=== PATIENT | male | born 1955 | race Caucasian/White ===

== ENCOUNTER 2022-12-17 09:32 | Outpatient (CLI) | payer MEDICARE | END 2022-12-17 09:33 | disposition home or self-care (01) | LOC: RAD 09:32 | PROVIDERS: ATTEND Internal Medicine Critical Care Medicine | DX: R06.00 Dyspnea, unspecified (principal) | CPT/HCPCS: 71046 ==

== ENCOUNTER 2023-04-26 13:48 | Inpatient (IN) | payer MEDICARE, OTHER, SELFPAY ==
[~2023-04-26 13:48] MED LIST: Iopamidol-370 76% 500 ML MDV (1 ML CHARGE) ONE
[2023-04-26 14:14] LABS: Bacteria/HPF None Seen HPF (None Seen); Bilirubin 1+ (Negative); Blood, Urine Negative (Negative); CAUTI Indications for Culture Pelvic or flank pain; Clarity Clear (Clear); Glucose, Urine (Dipstick) Normal (Negative); Ketone, Urine Negative (Negative); Leukocyte Negative Leu/uL (Negative); Nitrite Negative (Negative); Protein, Urine (Dipstick) Negative (Neg-Trace); RBC/HPF 0-3 HPF (0-3); Squamous Epithelial None Seen HPF (0-3); Urobilinogen Normal mg/dL (Less than 2); WBC/HPF 0-3 HPF (0-3)
[2023-04-26 14:15] LABS: Urine Culture Reflex No No
[2023-04-26 15:03] LABS: #Basophils 0.1 thou/uL (0.0-0.2); #Eosinphils 0.1 thou/uL (0.0-0.7); #Monocytes 0.8 thou/uL (0.11-0.59); #Neutrophils 3.5 thou/uL (1.40-6.50); %Basophils 0.8 % (0.0-1.0); %Eosinophils 1.5 % (0.0-10.0); %Lymphocytes 39.1 % (21.0-51.0); %Monocytes 10.7 % (0.0-10.0); %Neutrophils 47.6 % (42.0-75.0); Hemoglobin 12.2 g/dL (14.0-18.0); Mean Corpuscular HGB CONC 36.1 g/dL (32.0-36.0); Mean Corpuscular Hemoglobin 33.2 pg (27.0-31.0); Mean Corpuscular Volume 92.1 fl (78.0-98.0); Mean Platelet Volume 11.1 fL (7.4-10.4); Platelet Count 270 10x3/uL (130-400); RBC Distribution Width 15.4 % (11.5-14.5); Red Blood Cell (RBC) Count 3.67 mill/uL (4.70-6.10); White Blood Cell (WBC) Count 7.3 10x3/uL (4.8-10.8)
[2023-04-26 15:33] LABS: ALT (SGPT) 56 U/L (8-55); AST (SGOT) 45 U/L (5-34); Albumin 3.9 g/dL (3.4-4.8); Alkaline Phosphatase 246 U/L (40-110); Anion Gap 15 mmol/L (10-20); BUN (Urea Nitrogen) 10 mg/dL (8.4-25.7); Bilirubin, Total 9.5 mg/dL (0.2-1.2); Calc. Creatinine Clearance 0 mL/min (70-130); Calcium 9.5 mg/dL (7.8-10.44); Carbon Dioxide 21 mmol/L (23-31); Chloride 95 mmol/L (98-107); Estimated GFR 95; Globulin 3.3 g/dL (2.4-3.5); Glucose 108 mg/dL (80-115); Protein, Total 7.2 g/dL (5.8-8.1); Sodium 127 mmol/L (136-145)
[2023-04-26 15:47] LABS: Lipase 1845 U/L (8-78)
[2023-04-26] MEDS ORDERED: diphenhydrAMINE 50 MG/ML VIAL ONE (17:08)
[2023-04-26] MEDS ORDERED: Calcium Carbonate 500 MG ChewTAB PO PRN (19:39)
[2023-04-26] MEDS ORDERED: Ondansetron ODT 4 MG TAB PO PRN (19:39)
[2023-04-26] MEDS ORDERED: Acetaminophen 325 MG TAB PO PRN (19:39)
[2023-04-26] MEDS ORDERED: Senokot S 8.6-50 MG TAB PO PRN (19:39)
[2023-04-26 19:45] VITALS: BMI 29.0
[2023-04-26] MEDS: D5 1/2 NS w/20 mEq KCL 1,000 ML IV SCH (20:14)
[2023-04-26] MEDS: Famotidine 20 MG TAB PO SCH (20:15)
[2023-04-27] MEDS: D5 1/2 NS w/20 mEq KCL 1,000 ML IV SCH (03:58)
[2023-04-27 06:43] LABS: #Basophils 0.1 thou/uL (0.0-0.2); #Eosinphils 0.1 thou/uL (0.0-0.7); #Monocytes 0.7 thou/uL (0.11-0.59); #Neutrophils 2.5 thou/uL (1.40-6.50); %Basophils 0.9 % (0.0-1.0); %Eosinophils 2.5 % (0.0-10.0); %Monocytes 12.7 % (0.0-10.0); %Neutrophils 45.7 % (42.0-75.0); Hemoglobin 11.8 g/dL (14.0-18.0); Mean Corpuscular HGB CONC 35.8 g/dL (32.0-36.0); Mean Corpuscular Hemoglobin 32.4 pg (27.0-31.0); Mean Corpuscular Volume 90.7 fl (78.0-98.0); Platelet Count 270 10x3/uL (130-400); RBC Distribution Width 15.7 % (11.5-14.5); Red Blood Cell (RBC) Count 3.64 mill/uL (4.70-6.10); White Blood Cell (WBC) Count 5.5 10x3/uL (4.8-10.8)
[2023-04-27 07:10] LABS: ALT (SGPT) 54 U/L (8-55); AST (SGOT) 44 U/L (5-34); Albumin 3.5 g/dL (3.4-4.8); Alkaline Phosphatase 221 U/L (40-110); Anion Gap 14 mmol/L (10-20); BUN (Urea Nitrogen) 9 mg/dL (8.4-25.7); Bilirubin, Total 8.2 mg/dL (0.2-1.2); Calc. Creatinine Clearance 93 mL/min (70-130); Carbon Dioxide 22 mmol/L (23-31); Chloride 104 mmol/L (98-107); Estimated GFR 94; Glucose 124 mg/dL (80-115); Potassium 4.2 mmol/L (3.5-5.1); Protein, Total 6.5 g/dL (5.8-8.1); Sodium 136 mmol/L (136-145)
[2023-04-27] MEDS: Famotidine 20 MG TAB PO SCH ×2 (09:03→20:03)
[2023-04-28 07:53] VITALS: BP 162/75; TEMP 98.2
[2023-04-28] MEDS: Famotidine 20 MG TAB PO SCH (09:56)
== END 2023-04-28 11:12 | disposition short-term general hospital (02) | DRG 439 ==
LOC: ERS 13:48 → T4-A 18:13 → OBSVTOIN 04-27 16:59
PROVIDERS: ADMIT Student in an Organized Health Care Education/Training Program; ATTEND Internal Medicine Geriatric Medicine
DX: K86.89 Other specified diseases of pancreas (principal); E87.1 Hypo-osmolality and hyponatremia; K85.90 Acute pancreatitis without necrosis or infection, unspecified; E80.6 Other disorders of bilirubin metabolism; K75.9 Inflammatory liver disease, unspecified; I10 Essential (primary) hypertension; F17.210 Nicotine dependence, cigarettes, uncomplicated; Z90.49 Acquired absence of other specified parts of digestive tract; Z88.0 Allergy status to penicillin; Z88.1 Allergy status to other antibiotic agents
CPT/HCPCS: 36415; 74177; 76705; 80053; 81001; 83690; 85025; 93005; 96361; 96374; G0378; J1200; J3480; Q9967

== ENCOUNTER 2023-05-20 21:40 | Emergency (ER) | payer MEDICARE ==
[2023-05-20] MEDS ORDERED: fentaNYL 50 mcg/mL 1 mL Vial ONE (22:38)
[2023-05-20] MEDS ORDERED: Ondansetron PF 4 MG/2 ML Vial ONE (22:38)
[2023-05-20 22:47] LABS: #Basophils 0.1 thou/uL (0.0-0.2); #Monocytes 1.4 thou/uL (0.11-0.59); #Neutrophils 12.5 thou/uL (1.40-6.50); %Basophils 0.5 % (0.0-1.0); %Eosinophils 0.2 % (0.0-10.0); %Neutrophils 73.2 % (42.0-75.0); Hemoglobin 11.6 g/dL (14.0-18.0); Mean Corpuscular Volume 94.2 fl (78.0-98.0); Mean Platelet Volume 9.3 fL (7.4-10.4); Platelet Count 456 10x3/uL (130-400); RBC Distribution Width 13.3 % (11.5-14.5); Red Blood Cell (RBC) Count 3.62 mill/uL (4.70-6.10); White Blood Cell (WBC) Count 17.1 10x3/uL (4.8-10.8)
[2023-05-20 23:15] LABS: ALT (SGPT) 99 U/L (8-55); AST (SGOT) 67 U/L (5-34); Albumin 3.7 g/dL (3.4-4.8); Alkaline Phosphatase 152 U/L (40-110); Anion Gap 16 mmol/L (10-20); BUN (Urea Nitrogen) 11 mg/dL (8.4-25.7); Bilirubin, Total 2.9 mg/dL (0.2-1.2); Calc. Creatinine Clearance 0 mL/min (70-130); Calcium 9.3 mg/dL (7.8-10.44); Carbon Dioxide 24 mmol/L (23-31); Chloride 96 mmol/L (98-107); Estimated GFR 96; Glucose 155 mg/dL (80-115); Lipase 176 U/L (8-78); Potassium 4.9 mmol/L (3.5-5.1); Protein, Total 6.7 g/dL (5.8-8.1); Sodium 131 mmol/L (136-145)
[2023-05-21] MEDS ORDERED: fentaNYL 50 mcg/mL 1 mL Vial ONE (01:09)
[2023-05-21] MEDS ORDERED: Cefepime 2 GM VIAL ONE (02:14)
== END 2023-05-21 03:36 | disposition short-term general hospital (02) ==
LOC: ERS 21:40
DX: K81.0 Acute cholecystitis (principal); C25.9 Malignant neoplasm of pancreas, unspecified; Z96.89 Presence of other specified functional implants; E78.5 Hyperlipidemia, unspecified; I10 Essential (primary) hypertension; Z79.899 Other long term (current) drug therapy
CPT/HCPCS: 76705; 80053; 83690; 84484; 85025; 93005; 96361; 96365; 96375; 96376; 99285; J3010 ×2; J0692; J2405

== ENCOUNTER 2023-06-18 05:31 | Day surgery (SDC) | payer MEDICARE ==
[2023-06-17 12:22] VITALS: BMI 23.9
[2023-06-18] MEDS ORDERED: Lidocaine 1% MPF 2 ML VIAL ONE (06:02)
[2023-06-18] MEDS ORDERED: Ketorolac Tromethamine 30 MG/ML VIAL ONE (06:02)
[2023-06-18] MEDS ORDERED: Acetaminophen 500 MG TAB ONE (06:02)
[2023-06-18] MEDS ORDERED: Sodium Chloride 0.9% 100 ML ONE (06:57)
[2023-06-18] MEDS ORDERED: CEFAZOLIN 2 GM VIAL ONE (06:57)
[2023-06-18] MEDS ORDERED: Lidocaine 1% PF 5 ML VIAL ONE (07:12)
[2023-06-18] MEDS ORDERED: PHENYLEPHRINE-NS 100 MCG/ML 10 ML SYRINGE ONE (07:12)
[2023-06-18] MEDS ORDERED: PROPOFOL 200 MG/20 ML VIAL ONE (07:12)
[2023-06-18] MEDS ORDERED: Ondansetron PF 4 MG/2 ML Vial ONE (07:12)
[2023-06-18] MEDS ORDERED: ePHEDrine Sulfate 50 MG/10 ML VIAL ONE (07:12)
[2023-06-18] MEDS ORDERED: Bupivacaine 0.25% HCL 30 ML VIAL ONE (07:25)
[2023-06-18] MEDS ORDERED: Lidocaine 2% PF 5 ML VIAL ONE (07:25)
== END 2023-06-18 09:20 | disposition home or self-care (01) ==
LOC: SDC 05:31
PROVIDERS: ATTEND Specialist
PROC: 0JHF3WZ Insertion of Totally Implantable Vascular Access Device into Left Upper Arm Subcutaneous Tissue and Fascia, Percutaneous Approach (ICD-10-PCS; principal; 2023-06-18)
DX: C25.9 Malignant neoplasm of pancreas, unspecified (principal); I10 Essential (primary) hypertension; E78.00 Pure hypercholesterolemia, unspecified; Z88.0 Allergy status to penicillin; Z88.1 Allergy status to other antibiotic agents; Z79.899 Other long term (current) drug therapy; Z90.49 Acquired absence of other specified parts of digestive tract; Z98.890 Other specified postprocedural states
CPT/HCPCS: 36561; 71045; C1788; J1642; J1885; J2001; J2405; J2704; J3490; S0020

== ENCOUNTER 2023-09-19 18:37 | Observation (INO) | payer MEDICARE ==
[2023-09-19] MEDS ORDERED: Clindamycin/D5W 600 MG in Premix 1 BAG IVPB SCH (21:45)
[2023-09-19 21:49] LABS: Hematocrit 31.6 % (42.0-52.0); Hemoglobin 10.5 g/dL (14.0-18.0); Manual Diff?? YES; Mean Corpuscular HGB CONC 33.2 g/dL (32.0-36.0); Mean Corpuscular Hemoglobin 34.5 pg (27.0-31.0); Mean Corpuscular Volume 103.9 fl (78.0-98.0); Mean Platelet Volume 10.1 fL (7.4-10.4); Platelet Count 166 10x3/uL (130-400); RBC Distribution Width 16.1 % (11.5-14.5); Red Blood Cell (RBC) Count 3.04 mill/uL (4.70-6.10); White Blood Cell (WBC) Count 60.6 10x3/uL (4.8-10.8)
[2023-09-19 21:54] LABS: Delete Auto Diff?? YES
[2023-09-19 22:02] LABS: INR-International Normal Ratio 1.1; PTT 25.4 sec (22.9-36.1); Prothrombin Time 14.2 sec (12.0-14.7)
[2023-09-19 22:13] LABS: ALT (SGPT) 43 U/L (8-55); AST (SGOT) 26 U/L (5-34); Albumin 4.1 g/dL (3.4-4.8); Alkaline Phosphatase 186 U/L (40-110); Anion Gap 14 mmol/L (10-20); BUN (Urea Nitrogen) 14 mg/dL (8.4-25.7); Bilirubin, Total 0.3 mg/dL (0.2-1.2); Calc. Creatinine Clearance 0 mL/min (70-130); Calcium 9.1 mg/dL (7.8-10.44); Carbon Dioxide 20 mmol/L (23-31); Chloride 108 mmol/L (98-107); Estimated GFR 93; Globulin 2.9 g/dL (2.4-3.5); Glucose 101 mg/dL (80-115); Potassium 4.4 mmol/L (3.5-5.1); Sodium 138 mmol/L (136-145)
[2023-09-19] MEDS ORDERED: LevoFLOXacin 500 mg/D5W 100 ML BAG ONE (22:28)
[2023-09-19] MEDS ORDERED: Boostrix 0.5 ML (Tdap) VIAL (>/=7 yrs of age) ONE (22:28)
[2023-09-19 22:36] LABS: Band 12 % (5-11); CellaVision Operator ID lab.abc; Lymphocytes 3 % (21-51); Macrocytosis SLIGHT = 6-15 cells HPF (0-5); Monocytes 1 % (0-10); Neutrophil 84 % (42-75); Platelet Adequacy Comment Platelets Normal; Total Cell Count 100
[2023-09-19] MEDS ORDERED: Dextrose 50% Abboject 50 ML SYRINGE SLOW IVP PRN (23:17)
[2023-09-19] MEDS ORDERED: Dextrose 5% in Water 1,000 ML IV PRN (23:17)
[2023-09-19] MEDS ORDERED: Glucagon 1 MG/ML KIT IM PRN (23:17)
[2023-09-19] MEDS ORDERED: TETANUS, DIPHTHERIA TOX,ADULT (TDVAX) 0.5 ML VIAL IM ONE (23:17)
[2023-09-19] MEDS ORDERED: Ondansetron ODT 4 MG TAB PO PRN (23:18)
[2023-09-19] MEDS ORDERED: Ondansetron PF 4 MG/2 ML Vial IVP PRN (23:18)
[2023-09-19] MEDS ORDERED: traMADol HCl 50 MG TAB PO PRN (23:20)
[2023-09-19] MEDS ORDERED: Morphine 2 MG/ML VIAL SLOW IVP PRN (23:21)
[2023-09-19] MEDS ORDERED: Sodium Chloride 0.9% 1,000 ML IV SCH (23:30)
[2023-09-19 23:58] LABS: Troponin I Less than 0.010 ng/mL (< 0.028)
[2023-09-20 00:28] VITALS: BMI 26.2
[2023-09-20] MEDS: traMADol HCl 50 MG TAB PO SCH ×3 (01:26→12:52)
[2023-09-20] MEDS: Ibuprofen 200 MG TAB PO SCH ×2 (02:01→08:58)
[2023-09-20] MEDS: Acetaminophen 325 MG TAB PO SCH ×3 (02:01→12:52)
[2023-09-20 05:57] LABS: Hematocrit 29.9 % (42.0-52.0); Hemoglobin 9.7 g/dL (14.0-18.0); Manual Diff?? YES; Mean Corpuscular HGB CONC 32.4 g/dL (32.0-36.0); Mean Corpuscular Hemoglobin 34.3 pg (27.0-31.0); Mean Corpuscular Volume 105.7 fl (78.0-98.0); Mean Platelet Volume 10.5 fL (7.4-10.4); Platelet Count 155 10x3/uL (130-400); RBC Distribution Width 16.2 % (11.5-14.5); Red Blood Cell (RBC) Count 2.83 mill/uL (4.70-6.10); White Blood Cell (WBC) Count 55.9 10x3/uL (4.8-10.8)
[2023-09-20] MEDS ORDERED: Clindamycin/D5W 600 MG in Premix 1 BAG IVPB SCH (06:00)
[2023-09-20 06:28] LABS: Anion Gap 14 mmol/L (10-20); BUN (Urea Nitrogen) 17 mg/dL (8.4-25.7); Calc. Creatinine Clearance 70 mL/min (70-130); Calcium 8.9 mg/dL (7.8-10.44); Carbon Dioxide 20 mmol/L (23-31); Chloride 108 mmol/L (98-107); Estimated GFR 82; Glucose 85 mg/dL (80-115); Phosphorus 2.7 mg/dL (2.3-4.7); Potassium 4.2 mmol/L (3.5-5.1); Sodium 138 mmol/L (136-145)
[2023-09-20 06:33] LABS: Delete Auto Diff?? YES
[2023-09-20 06:36] LABS: Bacteria/HPF None Seen HPF (None Seen); Bilirubin Negative (Negative); Blood, Urine 2+ (Negative); CAUTI Indications for Culture Immunosuppressed; Clarity Clear (Clear); Glucose, Urine (Dipstick) 50 mg/dL (Negative); Ketone, Urine Negative (Negative); Leukocyte Negative Leu/uL (Negative); Nitrite Negative (Negative); Protein, Urine (Dipstick) 30 mg/dL (Neg-Trace); RBC/HPF 21-50 HPF (0-3); Squamous Epithelial None Seen HPF (0-3); Urobilinogen Normal mg/dL (Less than 2)
[2023-09-20 06:37] LABS: Urine Culture Reflex Yes Yes
[2023-09-20 07:05] LABS: Band 8 % (5-11); CellaVision Operator ID lab.abc; Lymphocytes 6 % (21-51); Macrocytosis SLIGHT = 6-15 cells HPF (0-5); Monocytes 3 % (0-10); Neutrophil 83 % (42-75); Platelet Adequacy Comment Platelets Normal; Polychromasia SLIGHT = 2-3 cells HPF (0-2); Smudge Cells 7.8 %; Total Cell Count 102
[2023-09-20] MEDS ORDERED: Ferrous Sulfate 325 MG TAB PO SCH (08:00)
[2023-09-20] MEDS ORDERED: Lidocaine 1% (PF) 30 ML VIAL ONE (08:13)
[2023-09-20] MEDS ORDERED: Famotidine 20 MG TAB PO SCH (09:00)
[2023-09-20] MEDS ORDERED: Gabapentin 300 MG CAP PO SCH (09:00)
[2023-09-20] MEDS ORDERED: Ascorbic Acid 500 mg Chewable Tablet PO SCH (09:00)
[2023-09-20 12:53] VITALS: BP 136/46; TEMP 97.9
[2023-09-20] MEDS ORDERED: LevoFLOXacin 500 mg/D5W 500 MG in Premix 1 BAG IVPB SCH (21:00)
== END 2023-09-20 13:22 | disposition home or self-care (01) ==
LOC: ERS 18:37 → INTOOBSV 22:38 → ERHOLD 22:38 → SURG B 09-20 00:08
PROVIDERS: ADMIT Surgery; ATTEND Surgery
PROC: 0HQLXZZ Repair Left Lower Leg Skin, External Approach (ICD-10-PCS; principal; 2023-09-20)
DX: S92.002A Unspecified fracture of left calcaneus, initial encounter for closed fracture (principal); S92.212A Displaced fracture of cuboid bone of left foot, initial encounter for closed fracture; C25.9 Malignant neoplasm of pancreas, unspecified; D72.829 Elevated white blood cell count, unspecified; I10 Essential (primary) hypertension; E78.00 Pure hypercholesterolemia, unspecified; Z90.89 Acquired absence of other organs; Z88.1 Allergy status to other antibiotic agents; Z88.0 Allergy status to penicillin; Z79.899 Other long term (current) drug therapy; Z79.82 Long term (current) use of aspirin; W26.8XXA Contact with other sharp object(s), not elsewhere classified, initial encounter
CPT/HCPCS: 12002; 71045; 73552; 73590; 73610; 73630; 73700; 80048; 80053; 81001; 83735; 84100; 84484; 85025 ×2; 85610; 85730; 87040; 87086; 90471; 90715; 96365; 96367; 96376; 99285; G0378; 36415; J1956; J2001; J3490; J7050

== ENCOUNTER 2023-11-10 09:45 | Outpatient (CLI) | payer MEDICARE | END 2023-11-10 09:46 | disposition home or self-care (01) | LOC: CT 09:45 | PROVIDERS: ATTEND Student in an Organized Health Care Education/Training Program | DX: R31.29 Other microscopic hematuria (principal); R30.0 Dysuria; K76.0 Fatty (change of) liver, not elsewhere classified; Z98.890 Other specified postprocedural states | CPT/HCPCS: 74176 ==

== ENCOUNTER 2023-11-19 20:34 | Emergency (ER) | payer MEDICARE, SELFPAY ==
[2023-11-19 21:49] LABS: #Eosinphils 0.1 thou/uL (0.0-0.7); #Monocytes 0.5 thou/uL (0.11-0.59); #Neutrophils 1.4 thou/uL (1.40-6.50); %Basophils 0.7 % (0.0-1.0); %Eosinophils 2.4 % (0.0-10.0); %Lymphocytes 50.2 % (21.0-51.0); %Monocytes 12.9 % (0.0-10.0); %Neutrophils 33.6 % (42.0-75.0); Hematocrit 27.2 % (42.0-52.0); Hemoglobin 9.2 g/dL (14.0-18.0); Mean Corpuscular HGB CONC 33.8 g/dL (32.0-36.0); Mean Corpuscular Hemoglobin 34.1 pg (27.0-31.0); Mean Corpuscular Volume 100.7 fl (78.0-98.0); Mean Platelet Volume 10.4 fL (7.4-10.4); RBC Distribution Width 13.4 % (11.5-14.5); White Blood Cell (WBC) Count 4.2 10x3/uL (4.8-10.8)
[2023-11-19 21:58] LABS: Platelet Count 63 10x3/uL (130-400)
[2023-11-19 22:06] LABS: INR-International Normal Ratio 1.1; PTT 29.4 sec (22.9-36.1); Prothrombin Time 13.9 sec (12.0-14.7)
[2023-11-19 22:14] LABS: ALT (SGPT) 44 U/L (8-55); AST (SGOT) 23 U/L (5-34); Albumin 3.8 g/dL (3.4-4.8); Alkaline Phosphatase 142 U/L (40-110); Anion Gap 11 mmol/L (10-20); BUN (Urea Nitrogen) 9 mg/dL (8.4-25.7); Bilirubin, Total 0.2 mg/dL (0.2-1.2); Calc. Creatinine Clearance 0 mL/min (70-130); Calcium 8.9 mg/dL (7.8-10.44); Carbon Dioxide 21 mmol/L (23-31); Chloride 110 mmol/L (98-107); Estimated GFR 88; Globulin 2.7 g/dL (2.4-3.5); Glucose 106 mg/dL (80-115); Potassium 4.2 mmol/L (3.5-5.1); Protein, Total 6.5 g/dL (5.8-8.1); Sodium 138 mmol/L (136-145)
[2023-11-19 22:20] LABS: Anisocytosis SLIGHT = 6-15 cells HPF (0-5); CellaVision Operator ID lab.dlt; Hypochromia SLIGHT = 6-15 cells HPF (0-5); Macrocytosis SLIGHT = 6-15 cells HPF (0-5); Platelet Adequacy Comment Platelets Decreased
== END 2023-11-20 00:45 | disposition home or self-care (01) ==
LOC: ERS 20:34
DX: K94.09 Other complications of colostomy (principal); D69.6 Thrombocytopenia, unspecified; E78.5 Hyperlipidemia, unspecified; I10 Essential (primary) hypertension
CPT/HCPCS: 36415; 80053; 85025; 85610; 85730; 93005

== ENCOUNTER 2024-06-23 09:08 | Inpatient (IN) | payer MEDICARE ==
[2024-06-23] MEDS ORDERED: Aspirin Chewable 81 MG TAB ONE (09:33)
[2024-06-23 10:09] LABS: INR-International Normal Ratio 1.1; Prothrombin Time 14.3 sec (12.0-14.7)
[2024-06-23 10:10] LABS: PTT 30.9 sec (22.9-36.1)
[2024-06-23 10:18] LABS: ALT (SGPT) 27 U/L (8-55); AST (SGOT) 31 U/L (5-34); Albumin 3.3 g/dL (3.4-4.8); Alkaline Phosphatase 284 U/L (40-110); Anion Gap 13 mmol/L (10-20); BUN (Urea Nitrogen) 16 mg/dL (8.4-25.7); Bilirubin, Total 0.4 mg/dL (0.2-1.2); Calc. Creatinine Clearance 0 mL/min (70-130); Carbon Dioxide 19 mmol/L (23-31); Chloride 108 mmol/L (98-107); Estimated GFR 65; Globulin 3.9 g/dL (2.4-3.5); Glucose 129 mg/dL (83-110); Magnesium 2.2 mg/dL (1.6-2.6); Potassium 4.4 mmol/L (3.5-5.1); Protein, Total 7.2 g/dL (5.8-8.1); Sodium 136 mmol/L (136-145)
[2024-06-23 10:21] LABS: Troponin I Less than 0.010 ng/mL (< 0.028)
[2024-06-23] MEDS ORDERED: Iopamidol-370 76% 500 ML MDV (1 ML CHARGE) ONE (10:35)
[2024-06-23 10:40] LABS: #Basophils 0.03 10x3/uL (0.0-0.2); %Basophils 0.5 % (0.0-1.0); %Eosinophils 1.8 % (0.0-10.0); %Lymphocytes 34.6 % (21.0-51.0); %Monocytes 9.6 % (0.0-10.0); %Neutrophils 53.3 % (42.0-75.0); Hematocrit 25.5 % (42.0-52.0); Hemoglobin 8.5 g/dL (14.0-18.0); Mean Corpuscular HGB CONC 33.3 g/dL (32.0-36.0); Mean Corpuscular Hemoglobin 35.9 pg (27.0-31.0); Mean Corpuscular Volume 107.6 fL (78.0-98.0); Mean Platelet Volume 10.9 fL (7.4-10.4); Platelet Count 131 10x3/uL (130-400); RBC Distribution Width 13.9 % (11.5-14.5); Red Blood Cell (RBC) Count 2.37 mill/uL (4.70-6.10)
[2024-06-23 10:53] LABS: Bilirubin Negative (Negative); Blood, Urine 3+ (Negative); CAUTI Indications for Culture Dysuria,urgency,freq; Clarity Clear (Clear); Glucose, Urine (Dipstick) Normal (Negative); Ketone, Urine Negative (Negative); Leukocyte Negative Leu/uL (Negative); Nitrite Negative (Negative); Protein, Urine (Dipstick) 20 mg/dL (Neg-Trace); RBC/HPF 21-50 HPF (0-3); Squamous Epithelial None Seen HPF (0-3); Urobilinogen Normal mg/dL (Less than 2); WBC/HPF 0-3 HPF (0-3)
[2024-06-23 11:08] LABS: Bacteria/HPF Rare-Few HPF (None Seen); Specific Gravity, Urine 1.048 (1.002-1.036)
[2024-06-23 11:09] LABS: Urine Culture Reflex No No
[2024-06-23] MEDS ORDERED: hydrALAZINE 20 MG/ML VIAL SLOW IVP PRN (11:46)
[2024-06-23] MEDS ORDERED: Acetaminophen 325 MG TAB PO PRN (11:46)
[2024-06-23] MEDS ORDERED: Ondansetron PF 4 MG/2 ML Vial IVP PRN (11:46)
[2024-06-23] MEDS ORDERED: Senokot S 8.6-50 MG TAB PO PRN (11:46)
[2024-06-23] MEDS ORDERED: Acetaminophen 650 MG Suppository PR PRN (11:46)
[2024-06-23] MEDS ORDERED: Calcium Carbonate 500 MG ChewTAB PO PRN (11:46)
[2024-06-23 13:44] VITALS: BMI 21.3
[2024-06-23] MEDS: Sodium Chloride 0.9% 1,000 ML IV SCH (13:51)
[2024-06-23 15:14] LABS: Troponin I Less than 0.010 ng/mL (< 0.028)
[2024-06-23 16:43] LABS: Troponin I Less than 0.010 ng/mL (< 0.028)
[2024-06-23] MEDS: Atorvastatin Calcium 20 MG TAB PO SCH (20:43)
[2024-06-24 04:24] LABS: #Basophils Less than 0.03 10x3/uL (0.0-0.2); %Basophils 0.2 % (0.0-1.0); %Eosinophils 2.7 % (0.0-10.0); %Lymphocytes 33.6 % (21.0-51.0); %Neutrophils 52.3 % (42.0-75.0); Hematocrit 21.1 % (42.0-52.0); Hemoglobin 6.9 g/dL (14.0-18.0); Mean Corpuscular HGB CONC 32.7 g/dL (32.0-36.0); Mean Corpuscular Hemoglobin 36.3 pg (27.0-31.0); Mean Corpuscular Volume 111.1 fL (78.0-98.0); Mean Platelet Volume 10.6 fL (7.4-10.4); Platelet Count 106 10x3/uL (130-400); RBC Distribution Width 13.9 % (11.5-14.5)
[2024-06-24 04:25] LABS: Hemoglobin A1c 5.4 % (4.0-6.0)
[2024-06-24 04:46] LABS: ALT (SGPT) 24 U/L (8-55); AST (SGOT) 26 U/L (5-34); Alkaline Phosphatase 242 U/L (40-110); Anion Gap 11 mmol/L (10-20); BUN (Urea Nitrogen) 12 mg/dL (8.4-25.7); Bilirubin, Total 0.4 mg/dL (0.2-1.2); Calc. Creatinine Clearance 54 mL/min (70-130); Calcium 8.8 mg/dL (7.8-10.44); Carbon Dioxide 20 mmol/L (23-31); Cardiac Risk 2.4 (Less than 4.5); Chloride 111 mmol/L (98-107); Cholesterol 88 mg/dl (< 200 Desired); Estimated GFR 78; Globulin 3.4 g/dL (2.4-3.5); Glucose 81 mg/dL (83-110); HDL Cholesterol 36 mg/dL (>60 Neg Risk); LDL Cholesterol, Calculated 37 mg/dL; Potassium 4.4 mmol/L (3.5-5.1); Protein, Total 6.4 g/dL (5.8-8.1); Sodium 138 mmol/L (136-145); Triglycerides 73 mg/dL (Less than 150)
[2024-06-24 04:47] LABS: Anisocytosis SLIGHT = 6-15 cells HPF (0-5); Macrocytosis SLIGHT = 6-15 cells HPF (0-5); Platelet Adequacy Comment Platelets Decreased; Poikilocytosis SLIGHT = 6-15 cells HPF (0-5); Polychromasia SLIGHT = 2-3 cells HPF (0-2)
[2024-06-24] MEDS: Tamsulosin HCl 0.4 MG CAP PO SCH (08:32)
[2024-06-24] MEDS: Diphenoxylate HCl/Atropine Tablet PO SCH (08:32)
[2024-06-24] MEDS: Pancrelipase DR 12,000 1 CAP PO SCH (08:33)
[2024-06-24] MEDS: Aspirin 81 mg Enteric Coated Tablet PO SCH (09:27)
[2024-06-24 10:27] VITALS: BMI 21.3
[2024-06-24] MEDS: Cholestyramine/Aspartame 4 gm Packet PO SCH (11:08)
[2024-06-24] MEDS: Pantoprazole 40 MG VIAL IVP SCH ×2 (15:27→20:36)
[2024-06-24 20:00] LABS: Hematocrit 25.1 % (42.0-52.0); Hemoglobin 8.4 g/dL (14.0-18.0)
[2024-06-25 04:51] LABS: Anion Gap 11 mmol/L (10-20); BUN (Urea Nitrogen) 10 mg/dL (8.4-25.7); Calc. Creatinine Clearance 54 mL/min (70-130); Calcium 8.7 mg/dL (7.8-10.44); Carbon Dioxide 22 mmol/L (23-31); Chloride 109 mmol/L (98-107); Estimated GFR 77; Glucose 81 mg/dL (83-110); Hematocrit 24.9 % (42.0-52.0); Hemoglobin 8.6 g/dL (14.0-18.0); Mean Corpuscular HGB CONC 34.5 g/dL (32.0-36.0); Mean Corpuscular Volume 101.2 fL (78.0-98.0); Mean Platelet Volume 11.2 fL (7.4-10.4); Platelet Count 118 10x3/uL (130-400); Potassium 4.8 mmol/L (3.5-5.1); RBC Distribution Width 16.7 % (11.5-14.5); Red Blood Cell (RBC) Count 2.46 mill/uL (4.70-6.10); Sodium 137 mmol/L (136-145)
[2024-06-25] MEDS ORDERED: PROPOFOL 60 ML ONE (09:51)
[2024-06-25] MEDS ORDERED: PROPOFOL 40 ML ONE (09:52)
[2024-06-25 12:49] LABS: Hematocrit 28.7 % (42.0-52.0); Hemoglobin 9.4 g/dL (14.0-18.0)
[2024-06-26 03:48] LABS: Hematocrit 24.2 % (42.0-52.0); Hemoglobin 8.1 g/dL (14.0-18.0); Mean Corpuscular HGB CONC 33.5 g/dL (32.0-36.0); Mean Corpuscular Hemoglobin 35.2 pg (27.0-31.0); Mean Corpuscular Volume 105.2 fL (78.0-98.0); Mean Platelet Volume 10.1 fL (7.4-10.4); Platelet Count 120 10x3/uL (130-400)
[2024-06-26 04:02] LABS: Anion Gap 12 mmol/L (10-20); BUN (Urea Nitrogen) 12 mg/dL (8.4-25.7); Calc. Creatinine Clearance 54 mL/min (70-130); Calcium 8.9 mg/dL (7.8-10.44); Carbon Dioxide 19 mmol/L (23-31); Chloride 109 mmol/L (98-107); Estimated GFR 77; Glucose 82 mg/dL (83-110); Potassium 4.4 mmol/L (3.5-5.1); Sodium 136 mmol/L (136-145)
[2024-06-26] MEDS: Gabapentin 100 MG CAP PO SCH (12:20)
[2024-06-26 13:32] LABS: Hematocrit 27.3 % (42.0-52.0)
[2024-06-26] MEDS: Pantoprazole DR 40 MG TAB PO SCH (21:36)
[2024-06-27 04:29] LABS: Hematocrit 24.5 % (42.0-52.0); Hemoglobin 8.3 g/dL (14.0-18.0); Mean Corpuscular HGB CONC 33.9 g/dL (32.0-36.0); Mean Corpuscular Hemoglobin 35.6 pg (27.0-31.0); Mean Corpuscular Volume 105.2 fL (78.0-98.0); Mean Platelet Volume 10.7 fL (7.4-10.4); Platelet Count 115 10x3/uL (130-400); RBC Distribution Width 15.5 % (11.5-14.5); Red Blood Cell (RBC) Count 2.33 mill/uL (4.70-6.10)
[2024-06-27 11:31] VITALS: BP 110/64; TEMP 98
== END 2024-06-27 11:37 | disposition home or self-care (01) | DRG 378 ==
LOC: ERS 09:08 → SUATTDRO 09:08 → ERHOLD 11:46 → 2SE 13:15 → OBSVTOIN 06-24 07:49
PROVIDERS: ADMIT Internal Medicine; ATTEND Internal Medicine
PROC: 30233N1 Transfusion of Nonautologous Red Blood Cells into Peripheral Vein, Percutaneous Approach (ICD-10-PCS; 2024-06-24)
PROC: 0DJ08ZZ Inspection of Upper Intestinal Tract, Via Natural or Artificial Opening Endoscopic (ICD-10-PCS; principal; 2024-06-25)
DX: K29.71 Gastritis, unspecified, with bleeding (principal); C25.9 Malignant neoplasm of pancreas, unspecified; D62 Acute posthemorrhagic anemia; D63.0 Anemia in neoplastic disease; E78.5 Hyperlipidemia, unspecified; Z88.0 Allergy status to penicillin; Z88.1 Allergy status to other antibiotic agents; Z79.82 Long term (current) use of aspirin; Z79.899 Other long term (current) drug therapy; I10 Essential (primary) hypertension; Z90.49 Acquired absence of other specified parts of digestive tract; Z98.890 Other specified postprocedural states; Z87.891 Personal history of nicotine dependence; M48.02 Spinal stenosis, cervical region; K21.00 Gastro-esophageal reflux disease with esophagitis, without bleeding
CPT/HCPCS: 36415; 36416; 36430; 70450; 70496; 70498; 70551; 71045; 71260; 72125; 72141; 74177; 80048; 80053; 80061; 81001; 83036; 83735; 84443; 84484; 85025; 85027; 85610; 85730; 86850; 86900; 86901; 93005; 93306; 93880; 94760; G0378; J2470; J2704; J7030; P9016; Q9967

== ENCOUNTER 2024-07-15 09:04 | Day surgery (SDC) | payer MEDICARE ==
[2024-07-15] MEDS ORDERED: Acetaminophen 500 MG TAB ONE (10:27)
[2024-07-15] MEDS ORDERED: diphenhydrAMINE 25 MG CAP ONE (10:27)
[2024-07-15] MEDS: Acetaminophen 500 MG TAB PO SCH (10:29)
[2024-07-15] MEDS: diphenhydrAMINE 25 MG CAP PO SCH (10:29)
[2024-07-15 13:19] VITALS: TEMP 97.7
[2024-07-15 14:57] VITALS: BP 128/60
== END 2024-07-15 15:19 | disposition home or self-care (01) ==
LOC: ONC/OP 09:04
PROVIDERS: ATTEND Internal Medicine
DX: D64.9 Anemia, unspecified (principal); D69.6 Thrombocytopenia, unspecified; Z88.1 Allergy status to other antibiotic agents; Z88.0 Allergy status to penicillin
CPT/HCPCS: 36430; 86850; 86900; 86901; 86920; J1642; P9016

== ENCOUNTER 2024-07-26 08:28 | Day surgery (SDC) | payer MEDICARE ==
[2024-07-26 08:55] LABS: #Basophils Less than 0.03 10x3/uL (0.0-0.2); %Basophils 0.3 % (0.0-1.0); %Eosinophils 1.7 % (0.0-10.0); %Lymphocytes 23.2 % (21.0-51.0); %Monocytes 10.5 % (0.0-10.0); Hematocrit 27.6 % (42.0-52.0); Hemoglobin 8.8 g/dL (14.0-18.0); Mean Corpuscular HGB CONC 31.9 g/dL (32.0-36.0); Mean Corpuscular Hemoglobin 32.2 pg (27.0-31.0); Mean Corpuscular Volume 101.1 fL (78.0-98.0); Platelet Count 124 10x3/uL (130-400); RBC Distribution Width 17.2 % (11.5-14.5); Red Blood Cell (RBC) Count 2.73 mill/uL (4.70-6.10)
[2024-07-26 09:13] LABS: INR-International Normal Ratio 1.1; PTT 34.6 sec (22.9-36.1); Prothrombin Time 14.5 sec (12.0-14.7)
[2024-07-26 10:25] VITALS: BP 124/65; TEMP 98
[2024-07-26] MEDS ORDERED: Lidocaine 1% PF 5 ML VIAL ONE (10:25)
[2024-07-26] MEDS ORDERED: fentaNYL 50 mcg/mL 1 mL Vial ONE (10:25)
[2024-07-26] MEDS ORDERED: Sodium Bicarbonate 2.5 MEQ/5 ML SDV ONE (10:26)
[2024-07-26] MEDS ORDERED: Midazolam HCl 2 mg/2 ml Vial ONE (10:26)
[2024-07-26] MEDS ORDERED: FLU (Fluad Triv) TS24-25 (65UP)/MF59C/PF 45 MCG/0.5 ML Syringe IM ONE (10:30)
[2024-07-26] MEDS ORDERED: Lidocaine 1% w/Epinephrine 1:100K 20 ML VIAL ONE (11:19)
== END 2024-07-26 15:00 | disposition home or self-care (01) ==
LOC: CT 08:28
PROVIDERS: ATTEND Internal Medicine
PROC: 0FB20ZX Excision of Left Lobe Liver, Open Approach, Diagnostic (ICD-10-PCS; principal; 2024-07-26)
DX: C25.3 Malignant neoplasm of pancreatic duct (principal); C78.7 Secondary malignant neoplasm of liver and intrahepatic bile duct; R91.1 Solitary pulmonary nodule; R31.9 Hematuria, unspecified; K92.1 Melena; K59.31 Toxic megacolon; K02.9 Dental caries, unspecified; I10 Essential (primary) hypertension; E78.00 Pure hypercholesterolemia, unspecified; Z90.49 Acquired absence of other specified parts of digestive tract; Z98.890 Other specified postprocedural states; Z79.899 Other long term (current) drug therapy
CPT/HCPCS: 47000; 71045; 77012; 85025; 85610; 85730; 88333; 88334; C1713; J3010; 88112; 88305; 88307; 88313; 88341; 88342; J2250

== ENCOUNTER 2024-08-03 13:38 | Inpatient (IN) | payer MEDICARE ==
[2024-08-03] MEDS ORDERED: fentaNYL 50 mcg/mL 1 mL Vial ONE (14:10)
[2024-08-03 14:55] LABS: #Basophils Less than 0.03 10x3/uL (0.0-0.2); %Basophils 0.3 % (0.0-1.0); %Eosinophils 0.6 % (0.0-10.0); %Lymphocytes 15.9 % (21.0-51.0); %Monocytes 13.1 % (0.0-10.0); %Neutrophils 69.9 % (42.0-75.0); Hemoglobin 7.7 g/dL (14.0-18.0); Mean Corpuscular HGB CONC 32.1 g/dL (32.0-36.0); Mean Corpuscular Hemoglobin 32.5 pg (27.0-31.0); Mean Corpuscular Volume 101.3 fL (78.0-98.0); Mean Platelet Volume 11.3 fL (7.4-10.4); Platelet Count 97 10x3/uL (130-400); RBC Distribution Width 17.1 % (11.5-14.5); Red Blood Cell (RBC) Count 2.37 mill/uL (4.70-6.10)
[2024-08-03 15:37] LABS: Troponin I 0.026 ng/mL (< 0.028)
[2024-08-03 15:40] LABS: ALT (SGPT) 21 U/L (8-55); AST (SGOT) 33 U/L (5-34); Albumin 2.5 g/dL (3.4-4.8); Alkaline Phosphatase 351 U/L (40-110); Anion Gap 10 mmol/L (10-20); BUN (Urea Nitrogen) 13 mg/dL (8.4-25.7); Bilirubin, Total 0.4 mg/dL (0.2-1.2); Calc. Creatinine Clearance 0 mL/min (70-130); Calcium 8.5 mg/dL (7.8-10.44); Carbon Dioxide 24 mmol/L (23-31); Chloride 103 mmol/L (98-107); Estimated GFR 91; Globulin 3.6 g/dL (2.4-3.5); Glucose 115 mg/dL (83-110); INR-International Normal Ratio 1.1; Lipase Less than 4 U/L (8-78); Magnesium 2.2 mg/dL (1.6-2.6); Potassium 4.5 mmol/L (3.5-5.1); Protein, Total 6.1 g/dL (5.8-8.1); Prothrombin Time 14.5 sec (12.0-14.7); Sodium 132 mmol/L (136-145)
[2024-08-03 15:41] LABS: PTT 36.8 sec (22.9-36.1)
[2024-08-03] MEDS ORDERED: Ondansetron ODT 4 MG TAB SL PRN (16:45)
[2024-08-03] MEDS ORDERED: Ondansetron PF 4 MG/2 ML Vial IVP PRN ×2 (16:45→17:04)
[2024-08-03] MEDS: Sodium Chloride 0.9% 1,000 ML IV SCH (17:46)
[2024-08-03 17:47] VITALS: BMI 21.7
[2024-08-03 18:47] LABS: Lactic Acid 1.86 mmol/L (0.5-2.2)
[2024-08-03] MEDS: Pantoprazole DR 40 MG TAB PO SCH (20:57)
[2024-08-03] MEDS ORDERED: Famotidine 20 MG TAB PO SCH (21:00)
[2024-08-03] MEDS: Morphine 2 MG/ML VIAL SLOW IVP PRN (21:00)
[2024-08-03] MEDS: Atorvastatin Calcium 20 MG TAB PO SCH (21:29)
[2024-08-03 22:02] LABS: Hematocrit 21.6 % (42.0-52.0); Hemoglobin 7.1 g/dL (14.0-18.0)
[2024-08-04 04:38] LABS: Hematocrit 25.5 % (42.0-52.0); Hemoglobin 8.4 g/dL (14.0-18.0)
[2024-08-04 04:50] LABS: #Basophils Less than 0.03 10x3/uL (0.0-0.2); %Basophils 0.3 % (0.0-1.0); %Eosinophils 0.9 % (0.0-10.0); %Lymphocytes 15.5 % (21.0-51.0); %Monocytes 13.2 % (0.0-10.0); %Neutrophils 69.6 % (42.0-75.0); Hematocrit 25.8 % (42.0-52.0); Hemoglobin 8.3 g/dL (14.0-18.0); Mean Corpuscular HGB CONC 32.2 g/dL (32.0-36.0); Mean Corpuscular Hemoglobin 30.3 pg (27.0-31.0); Mean Corpuscular Volume 94.2 fL (78.0-98.0); Mean Platelet Volume 10.2 fL (7.4-10.4); Platelet Count 86 10x3/uL (130-400); RBC Distribution Width 20.1 % (11.5-14.5); Red Blood Cell (RBC) Count 2.74 mill/uL (4.70-6.10)
[2024-08-04 04:52] LABS: Anion Gap 10 mmol/L (10-20); BUN (Urea Nitrogen) 12 mg/dL (8.4-25.7); Calc. Creatinine Clearance 64 mL/min (70-130); Calcium 8.3 mg/dL (7.8-10.44); Carbon Dioxide 22 mmol/L (23-31); Chloride 105 mmol/L (98-107); Estimated GFR 92; Glucose 94 mg/dL (83-110); Sodium 133 mmol/L (136-145)
[2024-08-04] MEDS: Pancrelipase DR 12,000 1 CAP PO SCH (08:24)
[2024-08-04] MEDS: Tamsulosin HCl 0.4 MG CAP PO SCH (08:25)
[2024-08-04] MEDS: traMADol HCl 50 MG TAB PO PRN (08:25)
[2024-08-04] MEDS: Acetaminophen 325 MG TAB PO PRN (11:26)
[2024-08-04 15:10] VITALS: BMI 21.7
[2024-08-04] MEDS: Atorvastatin Calcium 20 MG TAB PO SCH (20:04)
[2024-08-05 04:20] LABS: #Basophils Less than 0.03 10x3/uL (0.0-0.2); %Basophils 0.3 % (0.0-1.0); %Eosinophils 0.7 % (0.0-10.0); %Lymphocytes 12.9 % (21.0-51.0); %Monocytes 14.1 % (0.0-10.0); %Neutrophils 71.7 % (42.0-75.0); Hemoglobin 8.6 g/dL (14.0-18.0); Mean Corpuscular HGB CONC 33.1 g/dL (32.0-36.0); Mean Corpuscular Hemoglobin 30.2 pg (27.0-31.0); Mean Corpuscular Volume 91.2 fL (78.0-98.0); Mean Platelet Volume 10.7 fL (7.4-10.4); Platelet Count 77 10x3/uL (130-400); RBC Distribution Width 19.7 % (11.5-14.5); Red Blood Cell (RBC) Count 2.85 mill/uL (4.70-6.10)
[2024-08-05] MEDS ORDERED: Sodium Bicarbonate 2.5 MEQ/5 ML SDV ONE (13:32)
[2024-08-05] MEDS ORDERED: Lidocaine 1% PF 5 ML VIAL ONE (13:32)
[2024-08-05 17:26] VITALS: BP 113/70; TEMP 97.8
== END 2024-08-05 17:24 | disposition home or self-care (01) | DRG 814 ==
LOC: ERS 13:38 → MSONC 16:46
PROVIDERS: ADMIT Internal Medicine; ATTEND Family Medicine
PROC: 30233N1 Transfusion of Nonautologous Red Blood Cells into Peripheral Vein, Percutaneous Approach (ICD-10-PCS; 2024-08-03)
PROC: 0W9G3ZZ Drainage of Peritoneal Cavity, Percutaneous Approach (ICD-10-PCS; principal; 2024-08-05)
DX: S36.032A Major laceration of spleen, initial encounter (principal); K55.029 Acute infarction of small intestine, extent unspecified; R18.0 Malignant ascites; C25.3 Malignant neoplasm of pancreatic duct; D62 Acute posthemorrhagic anemia; E87.1 Hypo-osmolality and hyponatremia; Z66 Do not resuscitate; E78.5 Hyperlipidemia, unspecified; I10 Essential (primary) hypertension; D69.6 Thrombocytopenia, unspecified; Z51.5 Encounter for palliative care; Z88.0 Allergy status to penicillin; Z88.1 Allergy status to other antibiotic agents; Z79.82 Long term (current) use of aspirin; Z79.899 Other long term (current) drug therapy; Z98.890 Other specified postprocedural states; Z90.49 Acquired absence of other specified parts of digestive tract; Z87.891 Personal history of nicotine dependence; W55.12XA Struck by horse, initial encounter
CPT/HCPCS: 36415; 36416; 36430; 49083; 74177; 80048; 80053; 83605; 83690; 83735; 84484; 85025; 85610; 85730; 86850; 86900; 86901; 93005; 96374; 97139; J2272; J3010; J7030; P9016; Q9967

== ENCOUNTER 2024-08-09 10:27 | Emergency (ER) | payer MEDICARE ==
[2024-08-09 12:02] LABS: #Basophils Less than 0.03 10x3/uL (0.0-0.2); #Eosinophils Less than 0.03 10x3/uL (0.0-0.7); %Basophils 0.2 % (0.0-1.0); %Eosinophils 0.1 % (0.0-10.0); %Lymphocytes 6.7 % (21.0-51.0); %Monocytes 9.6 % (0.0-10.0); %Neutrophils 83.1 % (42.0-75.0); Hematocrit 28.8 % (42.0-52.0); Hemoglobin 9.4 g/dL (14.0-18.0); Mean Corpuscular HGB CONC 32.6 g/dL (32.0-36.0); Platelet Count 78 10x3/uL (130-400); Red Blood Cell (RBC) Count 3.03 mill/uL (4.70-6.10)
[2024-08-09] MEDS ORDERED: Ondansetron PF 4 MG/2 ML Vial ONE (12:03)
[2024-08-09] MEDS ORDERED: Morphine 4 MG/ML VIAL ONE (12:03)
[2024-08-09 12:34] LABS: ALT (SGPT) 22 U/L (8-55); AST (SGOT) 28 U/L (5-34); Albumin 2.3 g/dL (3.4-4.8); Alkaline Phosphatase 365 U/L (40-110); Anion Gap 16 mmol/L (10-20); BUN (Urea Nitrogen) 19 mg/dL (8.4-25.7); Bilirubin, Total 0.9 mg/dL (0.2-1.2); CK (CPK) 24 U/L (30-200); Calc. Creatinine Clearance 0 mL/min (70-130); Calcium 8.9 mg/dL (7.8-10.44); Carbon Dioxide 20 mmol/L (23-31); Chloride 94 mmol/L (98-107); Estimated GFR 82; Globulin 3.8 g/dL (2.4-3.5); Glucose 147 mg/dL (83-110); Lipase Less than 4 U/L (8-78); Potassium 5.1 mmol/L (3.5-5.1); Protein, Total 6.1 g/dL (5.8-8.1); Sodium 125 mmol/L (136-145)
[2024-08-09 12:38] LABS: Troponin I Less than 0.010 ng/mL (< 0.028)
[2024-08-09 15:31] LABS: Lactic Acid 2.06 mmol/L (0.5-2.2)
[2024-08-09 16:33] LABS: RBC Count-Automated (BF) 119024 /cu.mm; WBC/Nucleated-Auto (BF) 694 /cu.mm
[2024-08-09 16:34] LABS: BF Color Red; Body Fluid Source Ascites Body Fluid; Clarity Cloudy/Turbid (Clear); Tube # 1
[2024-08-09 17:07] LABS: BF Segmented Neutrophils 4 %; Cell Count Non Hematic 83 %; Lymphocytes 13 %
[2024-08-09 18:29] LABS: Bacteria/HPF None Seen HPF (None Seen); Bilirubin Negative (Negative); Blood, Urine 2+ (Negative); CAUTI Indications for Culture Pelvic or flank pain; Clarity Clear (Clear); Glucose, Urine (Dipstick) Normal (Negative); Ketone, Urine Negative (Negative); Leukocyte Negative Leu/uL (Negative); Nitrite Negative (Negative); Protein, Urine (Dipstick) 30 mg/dL (Neg-Trace); RBC/HPF Greater than 50 HPF (0-3); Squamous Epithelial None Seen HPF (0-3); Urobilinogen Normal mg/dL (Less than 2); WBC/HPF 0-3 HPF (0-3)
[2024-08-09 18:31] LABS: Specific Gravity, Urine 1.048 (1.002-1.036)
[2024-08-09 18:32] LABS: Urine Culture Reflex No No
== END 2024-08-09 20:12 | disposition home or self-care (01) ==
LOC: ERS 10:27
DX: R11.2 Nausea with vomiting, unspecified (principal); R10.9 Unspecified abdominal pain; C25.9 Malignant neoplasm of pancreas, unspecified
CPT/HCPCS: 49083; 51701; 74177; 80053; 81001; 82550; 83605; 83690; 83735; 84484; 85025; 87040; 87070; 87149 ×2; 87205; 89051; 93005; 96374; 96375; 99284; J2272; J2405; Q9967; 36415; 85060